=== PATIENT | male | born 1950 | race Caucasian/White ===

== ENCOUNTER 2017-08-01 16:05 | Emergency (ER) | payer MEDICARE ==
[2017-08-01 16:37] VITALS: BP 149/79; PULSE 64; RESP 16; TEMP 97.9
--- NOTE | 2017-08-01 17:17 | ED ---
General Adult HPI - General Chief complaint: Extremity Injury, Lower Stated complaint: Knee Pain Time Seen by Provider: 08/01/17 16:52 Source: patient Mode of arrival: wheelchair Limitations: no limitations - History of Present Illness Initial comments: 67-year-old male presents to the emergency department for a chief complaint of right knee pain. Patient states his pain has been chronic but he was walking today when he turned and his knee gave out. Patient denies falling or any other trauma to the knee. Patient states since that time the pain has been worse and he has had difficulty bearing weight on it. Patient just saw Dr. Tidwell yesterday and had x-rays done which showed no fracture or dislocation. Dr. Serna diagnosed him with a meniscal tear, gave him a cortisone injection, and wrote him a prescription to start therapy in 3 days. Patient states he has not been taking any anti-inflammatories or pain medications for his knee. He was wearing a brace today but finds it uncomfortable and doesn't think it helped much. Patient denies any pain in the ankle or hip. Patient has intact capillary refill in the right lower extremity. Patient has a 2+ pedal pulse. He has full sensation in the lower leg. - Related Data Allergies Allergy/AdvReac Type Severity Reaction Status Date / Time No Known Allergies Allergy Verified 08/01/17 16:36 Review of Systems ROS Statement: Those systems with pertinent positive or pertinent negative responses have been documented in the HPI. ROS Other: All systems not noted in ROS Statement are negative. Past Medical History Past Medical History: Hyperlipidemia, Thyroid Disorder History of Any Multi-Drug Resistant Organisms: None Reported Past Surgical History: Hernia Repair, Prostate Surgery Past Psychological History: No Psychological Hx Reported Smoking Status: Never smoker Past Alcohol Use History: None Reported Past Drug Use History: None Reported General Exam Limitations: no limitations Head exam: Present: atraumatic, normocephalic, normal inspection Respiratory exam: Present: normal lung sounds bilaterally. Absent: respiratory distress, wheezes, rales, rhonchi, stridor Cardiovascular Exam: Present: regular rate, normal rhythm, normal heart sounds. Absent: systolic murmur, diastolic murmur, rubs, gallop, clicks GI/Abdominal exam: Present: soft, normal bowel sounds. Absent: distended, tenderness, guarding, rebound, rigid Extremities exam: Present: tenderness (Slight tenderness to the medial aspect of the right knee), normal capillary refill. Absent: normal inspection, full ROM (Pain with extension and valgus deviation of the right knee.), pedal edema, joint swelling, calf tenderness Course Vital Signs 08/01/17 16:33 Temperature 97.9 F Pulse Rate 64 Respiratory 16 Rate Blood Pressure 149/79 O2 Sat by Pulse 97 Oximetry Medical Decision Making - Medical Decision Making 67-year-old male patient presents to the emergency department for chief complaint of right knee pain. Patient saw Dr. Serna for the knee pain yesterday. However today he was walking and turned and his knee gave out. It has been hurting since that time. Patient denies falling or any trauma to the knee so x-rays were not repeated. Patient has tenderness on the right medial aspect of the knee which is consistent with Dr. Serna's diagnosis of a meniscal tear. He also has pain with valgus deviation of the right knee. Patient will be started on ibuprofen 600mg 3 times a day with food as he has not been taking any anti-inflammatories. He is also told to rest ice and elevate the knee. We will wrap it in the emergency department. He will follow-up with Dr. Serna in one to 2 days. Disposition Clinical Impression: Right knee pain Disposition: HOME SELF-CARE Condition: Good Additional Instructions: Please follow up with Dr. Serna in one to 2 days. If pain or symptoms worsen please return to the emergency department. In the meantime, please take ibuprofen 600 mg every 8 hours. Also rest, ice, and elevate your knee. If Regino wrap is comfortable, keep your knee compressed with the wrap. Referrals: Nawaf Jones MD [Primary Care Provider] - 1-2 days Melchor Serna MD [STAFF PHYSICIAN] - 1-2 days Time of Disposition: 17:17
[2017-08-01] MEDS ORDERED: IBUPROFEN 600 MG TAB PO STA (17:27)
== END 2017-08-01 17:51 | disposition home or self-care (01) ==
LOC: EC 16:05
DX: M25.561 Pain in right knee (principal)
CPT/HCPCS: 99283

== ENCOUNTER 2017-09-30 12:39 | Emergency (ER) | payer MEDICARE ==
[2017-09-30 12:53] VITALS: BP 156/84; PULSE 50; RESP 20; TEMP 98.9
[2017-09-30] MEDS ORDERED: SODIUM CHLORIDE 0.9% 1,000 ML IV STA (13:16)
[2017-09-30 13:38] LABS: Basophils % (A) 0 %; Eosinophils # (A) 0.1 k/uL (0-0.7); Eosinophils % (A) 1 %; HCT 45.6 % (39.0-53.0); HGB 15.3 gm/dL (13.0-17.5); Lymphocytes # (A) 0.9 k/uL (1.0-4.8); Lymphocytes % (A) 8 %; MCH 29.1 pg (25.0-35.0); MCHC 33.5 g/dL (31.0-37.0); MCV 86.8 fL (80.0-100.0); Mean Platelet Volume 7.2; Monocytes # (A) 0.4 k/uL (0-1.0); Monocytes % (A) 4 %; Neutrophils # (A) 9.3 k/uL (1.3-7.7); Neutrophils % (A) 86 %; Platelet Count 187 k/uL (150-450); RBC 5.25 m/uL (4.30-5.90); RDW 13.8 % (11.5-15.5); WBC 10.8 k/uL (3.8-10.6)
--- NOTE | 2017-09-30 13:43 | ED ---
General Adult HPI - General Chief complaint: Abdominal Pain Stated complaint: Flank pain Time Seen by Provider: 09/30/17 13:01 Source: patient, RN notes reviewed Mode of arrival: ambulatory Limitations: no limitations - History of Present Illness Initial comments: 67-year-old male presents to the emergency determine for chief complaint of flank pain 2 weeks. Patient states it has been on and off for the past 2 weeks but worsened last night. Patient states he has taken some Motrin for pain which helped a couple hours ago. Patient states the pain is radiating from his left lower back to his groin and left testicle. Patient has a history of kidney stones over 20 years ago. Patient last urinated 2 hours ago. His last bowel movement was yesterday. Patient has a history of prostate surgery. Patient is urinating normally. Patient was supposed to be on a flight today but missed it to be seen in the emergency department. No fevers/chills at home. Patient has no other complaints at this time including shortness of breath, chest pain, abdominal pain, nausea or vomiting, headache, or visual changes. - Related Data Home Medications Medication Instructions Recorded Confirmed Atorvastatin [Lipitor] 20 mg PO HS 09/30/17 09/30/17 Levothyroxine Sodium [Synthroid] 88 mcg PO DAILY 09/30/17 09/30/17 Previous Rx's Medication Instructions Recorded HYDROcodone/APAP 5-325MG [[place] 1 tab PO Q6HR PRN #10 tab 09/30/17 5-325] Ibuprofen [Motrin] 600 mg PO Q6HR PRN #20 tab 09/30/17 Tamsulosin [Flomax] 0.4 mg PO DAILY #20 cap 09/30/17 Allergies Allergy/AdvReac Type Severity Reaction Status Date / Time No Known Allergies Allergy Verified 09/30/17 13:04 Review of Systems ROS Statement: Those systems with pertinent positive or pertinent negative responses have been documented in the HPI. ROS Other: All systems not noted in ROS Statement are negative. Past Medical History Past Medical History: Hyperlipidemia, Prostate Disorder, Thyroid Disorder Additional Past Medical History / Comment(s): kidney stones History of Any Multi-Drug Resistant Organisms: None Reported Past Surgical History: Hernia Repair, Prostate Surgery Past Psychological History: No Psychological Hx Reported Smoking Status: Never smoker Past Alcohol Use History: None Reported Past Drug Use History: None Reported General Exam Limitations: no limitations General appearance: alert, in no apparent distress Head exam: Present: atraumatic, normocephalic, normal inspection Eye exam: Present: normal appearance, PERRL, EOMI. Absent: scleral icterus, conjunctival injection ENT exam: Present: normal exam, mucous membranes moist, normal external ear exam Neck exam: Present: normal inspection, full ROM. Absent: tenderness, meningismus, lymphadenopathy Respiratory exam: Present: normal lung sounds bilaterally. Absent: respiratory distress, wheezes, rales, rhonchi, stridor Cardiovascular Exam: Present: regular rate, normal rhythm, normal heart sounds. Absent: systolic murmur, diastolic murmur, rubs, gallop, clicks GI/Abdominal exam: Present: soft, tenderness (Mild left lower quadrant tenderness.), normal bowel sounds, other (Negative Rovsing, obturator sign.). Absent: distended, guarding, rebound, rigid Back exam: Present: full ROM. Absent: tenderness, CVA tenderness (R), CVA tenderness (L), paraspinal tenderness, vertebral tenderness Course Vital Signs 09/30/17 12:50 Temperature 98.9 F Pulse Rate 50 L Respiratory 20 Rate Blood Pressure 156/84 O2 Sat by Pulse 100 Oximetry Medical Decision Making - Medical Decision Making 67-year-old male presents to the emergency department for a chief complaint of flank pain for the past 2 weeks worsened in the past 2 days. Patient has had aspirin with no relief. Patient states the pain radiates from his back to his testicle. He had a kidney stone about 20 years ago. Patient has had prostate surgery. He is urinating normally and not having any difficulty. Urinalysis shows moderate blood. CBC CMP and amylase lipase unremarkable. X-ray KUB shows no acute abnormalities. CT noncontrast shows a 6 mm calculus in the distal left ureter causing moderate left-sided hydronephrosis. Patient was given morphine and Toradol in the emergency department which helped with his pain. He is not driving home. Patient was Motrin for pain relief and [place]ie if he experiences breakthrough pain. He will take Flomax. He will follow up with urologist. He will return to the emergency department if he has any worsening symptoms. - Lab Data Result diagrams: 09/30/17 13:25 09/30/17 13:25 Lab Results 09/30/17 09/30/17 09/30/17 Range/Units 13:25 13:25 13:25 WBC 10.8 H (3.8-10.6) k/uL RBC 5.25 (4.30-5.90) m/uL Hgb 15.3 (13.0-17.5) gm/dL Hct 45.6 (39.0-53.0) % MCV 86.8 (80.0-100.0) fL MCH 29.1 (25.0-35.0) pg MCHC 33.5 (31.0-37.0) g/dL RDW 13.8 (11.5-15.5) % Plt Count 187 (150-450) k/uL Neutrophils % 86 % Lymphocytes % 8 % Monocytes % 4 % Eosinophils % 1 % Basophils % 0 % Neutrophils # 9.3 H (1.3-7.7) k/uL Lymphocytes # 0.9 L (1.0-4.8) k/uL Monocytes # 0.4 (0-1.0) k/uL Eosinophils # 0.1 (0-0.7) k/uL Basophils # 0.0 (0-0.2) k/uL Sodium 142 (137-145) mmol/L Potassium 4.3 (3.5-5.1) mmol/L Chloride 107 (98-107) mmol/L Carbon Dioxide 20 L (22-30) mmol/L Anion Gap 15 mmol/L BUN 18 (9-20) mg/dL Creatinine 1.10 (0.66-1.25) mg/dL Est GFR (CKD-EPI)AfAm 79 (>60 ml/min/1.73 sqM) Est GFR (CKD-EPI)NonAf 68 (>60 ml/min/1.73 sqM) Glucose 95 (74-99) mg/dL Plasma Lactic Acid [place] 0.9 (0.7-2.0) mmol/L Calcium 10.1 (8.4-10.2) mg/dL Total Bilirubin 0.5 (0.2-1.3) mg/dL AST 30 (17-59) U/L ALT 38 (21-72) U/L Alkaline Phosphatase 73 (38-126) U/L Total Protein 6.6 (6.3-8.2) g/dL Albumin 4.2 (3.5-5.0) g/dL Amylase 146 H (30-110) U/L Lipase 80 (23-300) U/L Urine Color Urine Appearance (Clear) Urine pH (5.0-8.0) Ur Specific [place] (1.001-1.035) Urine Protein (Negative) Urine Glucose (UA) (Negative) Urine Ketones (Negative) Urine Blood (Negative) Urine Nitrite (Negative) Urine Bilirubin (Negative) Urine Urobilinogen (<2.0) mg/dL Ur Leukocyte Esterase (Negative) Urine RBC (0-5) /hpf Urine WBC (0-5) /hpf Ur Squamous Epith Cells (0-4) /hpf Urine Bacteria (None) /hpf Urine Mucus (None) /hpf 09/30/17 Range/Units 13:32 WBC (3.8-10.6) k/uL RBC (4.30-5.90) m/uL Hgb (13.0-17.5) gm/dL Hct (39.0-53.0) % MCV (80.0-100.0) fL MCH (25.0-35.0) pg MCHC (31.0-37.0) g/dL RDW (11.5-15.5) % Plt Count (150-450) k/uL Neutrophils % % Lymphocytes % % Monocytes % % Eosinophils % % Basophils % % Neutrophils # (1.3-7.7) k/uL Lymphocytes # (1.0-4.8) k/uL Monocytes # (0-1.0) k/uL Eosinophils # (0-0.7) k/uL Basophils # (0-0.2) k/uL Sodium (137-145) mmol/L Potassium (3.5-5.1) mmol/L Chloride (98-107) mmol/L Carbon Dioxide (22-30) mmol/L Anion Gap mmol/L BUN (9-20) mg/dL Creatinine (0.66-1.25) mg/dL Est GFR (CKD-EPI)AfAm (>60 ml/min/1.73 sqM) Est GFR (CKD-EPI)NonAf (>60 ml/min/1.73 sqM) Glucose (74-99) mg/dL Plasma Lactic Acid [place] (0.7-2.0) mmol/L Calcium (8.4-10.2) mg/dL Total Bilirubin (0.2-1.3) mg/dL AST (17-59) U/L ALT (21-72) U/L Alkaline Phosphatase (38-126) U/L Total Protein (6.3-8.2) g/dL Albumin (3.5-5.0) g/dL Amylase (30-110) U/L Lipase (23-300) U/L Urine Color Yellow Urine Appearance Cloudy (Clear) Urine pH 5.5 (5.0-8.0) Ur Specific [place] 1.023 (1.001-1.035) Urine Protein Trace H (Negative) Urine Glucose (UA) Negative (Negative) Urine Ketones 1+ H (Negative) Urine Blood Moderate H (Negative) Urine Nitrite Negative (Negative) Urine Bilirubin Negative (Negative) Urine Urobilinogen <2.0 (<2.0) mg/dL Ur Leukocyte Esterase Negative (Negative) Urine RBC 34 H (0-5) /hpf Urine WBC 2 (0-5) /hpf Ur Squamous Epith Cells <1 (0-4) /hpf Urine Bacteria Rare H (None) /hpf Urine Mucus Few H (None) /hpf Disposition Clinical Impression: Kidney stone on left side Disposition: HOME SELF-CARE Condition: Good Instructions: Kidney Stones (ED) Additional Instructions: Please take Motrin for pain relief. If pain is still severe take Hoxie. Follow -up with urologist in one to 2 days. Return to the emergency department if you have any worsening symptoms. Prescriptions: HYDROcodone/APAP 5-325MG [[place] 5-325] 1 tab PO Q6HR PRN #10 tab PRN Reason: Pain Ibuprofen [Motrin] 600 mg PO Q6HR PRN #20 tab PRN Reason: Pain Tamsulosin [Flomax] 0.4 mg PO DAILY #20 cap Is patient prescribed a controlled substance at d/c from ED?: Yes Referrals: Nawaf Jones MD [Primary Care Provider] - 1-2 days Mirza Vazquez MD [STAFF PHYSICIAN] - 1-2 days Time of Disposition: 16:05
[2017-09-30 13:51] LABS: Albumin 4.2 g/dL (3.5-5.0); Calcium 10.1 mg/dL (8.4-10.2); Potassium 4.3 mmol/L (3.5-5.1); Total Bilirubin 0.5 mg/dL (0.2-1.3); Total Protein 6.6 g/dL (6.3-8.2)
[2017-09-30 13:57] LABS: Appearance,Urine Cloudy (Clear); Bacteria,Urine Rare /hpf; Bilirubin,Urine Negative (Negative); Blood,Urine Moderate (Negative); Color,Urine Yellow; Glucose,Urine (UA) Negative (Negative); Ketones,Urine 1+ (Negative); Leukocyte Esterase,Urine Negative (Negative); Mucus,Urine Few /hpf; Nitrite,Urine Negative (Negative); PH, Urine 5.5 (5.0-8.0); Protein,Urine Trace (Negative); RBC,Urine 34 /hpf (0-5); Specific Gravity,Urine 1.023 (1.001-1.035); Squamous Epithelial Cell,Urine <1 /hpf (0-4); Urobilinogen,Urine <2.0 mg/dL (<2.0); WBC,Urine 2 /hpf (0-5)
--- NOTE | 2017-09-30 14:31 | XR ---
EXAMINATION TYPE: XR KUB DATE OF EXAM: 09/30/2017 CLINICAL DATA: 67-year-old male complaining of left flank pain, history of kidney stones, PHH COMPARISON: None FINDINGS: Lung bases are clear. No evidence for free intraperitoneal air. No dilated small bowel or air-fluid levels. Scattered air and stool seen throughout the colon extendi ng distally into the rectum. Mild stool burden. No suspicious calcifications identified. Degenerative dextroconvex curvature of the lumbar spine. IMPRESSION: 1. No suspicious calcifications are radiographically apparent. 2. No evidence of bowel obstruction or free intraperitoneal air.
[2017-09-30] MEDS ORDERED: MORPHINE SULFATE 4 MG/ML SYRINGE IVP STA ×2 (14:53→15:57)
[2017-09-30] MEDS ORDERED: KETOROLAC 30 MG/ML 1 ML VIAL IVP STA (14:53)
[2017-09-30] MEDS ORDERED: ONDANSETRON 4 MG/2 ML VIAL IVP STA (14:54)
--- NOTE | 2017-09-30 15:32 | CT ---
EXAMINATION TYPE: CT abdomen pelvis wo con DATE OF EXAM: 09/30/2017 HISTORY: Left sided abdominal pain. CT DLP: 816 mGycm. Automated Exposure Control for Dose Reduction was Utilized. TECHNIQUE: CT scan of the abdomen and pelvis is performed without oral or IV contrast. COMPARISON: NONE FINDINGS: Within the limitations of a non-contrast study, the following observations are made. LUNG BASES: There is bibasilar linear scarring and/or atelectasis. LIVER/GB: No significant abnormality is appreciated. PANCREAS: No significant abnormality is seen. SPLEEN: No significant abnormality is seen. ADRENALS: No significant abnormality is seen. KIDNEYS: There is central hyperdensity in the right kidney raising concern for underlying medullary n ephrocalcinosis. Roughly 3-8 formed calculi are felt present. There is simple appearing 1.6 cm cyst a nteriorly mid pole level right kidney axial image 57. No hydronephrosis or obstructing right ureter c alculi are seen. Central density in the left kidney is also present filling calyces. Suspect underlying nephrocalcinos is. There is moderate left-sided hydronephrosis and mild to moderate left-sided perinephric fat stran ding secondary to obstructing 6 mm calculus in the distal left ureter right before UVJ seen best seen coronal image 50. No intraluminal calculus is seen in poorly distended bladder. Bladder wall is mildly thickened at 9 m m. Correlate clinically to exclude cystitis. BOWEL: There are scattered diverticula throughout the colon. There is no convincing CT evidence for a cute diverticulitis. Mild wall thickening in the transverse colon is present. This is presumed produc t of poor distention. Other etiologies are not excluded. Correlate clinically. There is no suspicious small or large bowel dilatation. There is single prominent small bowel loop with air-fluid level in the upper pelvis just left of midline axial image 102 measuring 2.8 cm in diameter. GENITAL ORGANS: Prostate gland is not well-visualized and may be surgically absent or small in size. No pelvic clips are identified. LYMPH NODES: No greater than 1cm abdominal or pelvic lymph nodes are appreciated. OSSEOUS STRUCTURES: Posterior spurs effacing anterior thecal sac L1-L2 level. There is moderate to se mary anterior spurring L4-L5 level. There is moderate disc space narrowing L4-L5 level. There is mode rate joint space loss in both hips. OTHER: There is small to moderate-sized left paraumbilical hernia containing fat and small mesenteric vessel vascular axial image 70. There is small fat-containing right inguinal hernia. IMPRESSION: There is 6 mm calculus distal left ureter causing moderate left-sided hydronephrosis. Pos sible underlying cystitis, correlate clinically.
[2017-09-30] MEDS ORDERED: MORPHINE SULFATE 4 MG/ML SYRINGE IVP PRN (15:56)
[2017-09-30] MEDS ORDERED: KETOROLAC 30 MG/ML 1 ML VIAL IM STA (16:36)
== END 2017-09-30 16:52 | disposition home or self-care (01) ==
LOC: EC 12:39
DX: N13.2 Hydronephrosis with renal and ureteral calculous obstruction (principal); E78.5 Hyperlipidemia, unspecified; Z79.899 Other long term (current) drug therapy; Z98.890 Other specified postprocedural states
CPT/HCPCS: 36415; 80053; 82150; 83605; 83690; 85025; 81001; 74018; 74176; 99284; 96374; 96375 ×2; 96361 ×2; 96372; J2270; J2405; J1885

== ENCOUNTER 2017-10-02 02:11 | Emergency (ER) | payer MEDICARE ==
[2017-10-02 02:16] VITALS: BP 139/97; PULSE 64; RESP 16; TEMP 99.2
[2017-10-02] MEDS ORDERED: SODIUM CHLORIDE 0.9% 1,000 ML IV ONE (02:27)
[2017-10-02] MEDS ORDERED: MORPHINE SULFATE 4 MG/ML SYRINGE IVP STA (02:27)
[2017-10-02] MEDS ORDERED: KETOROLAC 30 MG/ML 1 ML VIAL IVP STA (02:27)
--- NOTE | 2017-10-02 02:30 | ED ---
Abdominal Pain HPI - General Chief Complaint: Abdominal Pain Stated Complaint: kidney stone Time Seen by Provider: 10/02/17 02:19 Source: patient Mode of arrival: wheelchair Limitations: no limitations - History of Present Illness Initial Comments: 67-year-old male patient presents to the emergency department today for evaluation of left-sided flank pain that radiates around to his abdomen and groin. Patient was seen and evaluated here 2 days ago was diagnosed with a 6 mm stone to the left distal ureter that was causing moderate left-sided hydronephrosis. Patient states he has been taking his medication as prescribed. States that he has had continuous pain however started getting more severe approximately one hour ago. Patient states he has been urinating without difficulty. Denies any nausea or vomiting. Denies any difficulty with bowel movements. Patient denies any fevers or chills. He does have an appointment with urologist later today. Patient denies any recent rash, shortness breath, chest pain, numbness, tingling, dizziness, weakness, headache , visual changes, or any other complaints. - Related Data Home Medications Medication Instructions Recorded Confirmed Atorvastatin [Lipitor] 20 mg PO HS 09/30/17 09/30/17 Levothyroxine Sodium [Synthroid] 88 mcg PO DAILY 09/30/17 09/30/17 Previous Rx's Medication Instructions Recorded HYDROcodone/APAP 5-325MG [[place] 1 tab PO Q6HR PRN #10 tab 09/30/17 5-325] Ibuprofen [Motrin] 600 mg PO Q6HR PRN #20 tab 09/30/17 Tamsulosin [Flomax] 0.4 mg PO DAILY #20 cap 09/30/17 Ciprofloxacin HCl [Cipro] 500 mg PO Q12HR #14 tablet 10/02/17 Allergies Allergy/AdvReac Type Severity Reaction Status Date / Time No Known Allergies Allergy Verified 10/02/17 02:16 Review of Systems ROS Statement: Those systems with pertinent positive or pertinent negative responses have been documented in the HPI. ROS Other: All systems not noted in ROS Statement are negative. Past Medical History Past Medical History: Hyperlipidemia, Prostate Disorder, Thyroid Disorder Additional Past Medical History / Comment(s): kidney stones History of Any Multi-Drug Resistant Organisms: None Reported Past Surgical History: Hernia Repair, Prostate Surgery Past Psychological History: No Psychological Hx Reported Smoking Status: Never smoker Past Alcohol Use History: None Reported Past Drug Use History: None Reported General Exam Limitations: no limitations General appearance: alert, in no apparent distress, other (This is a well- developed, well-nourished adult male patient in no acute distress. Vital signs upon presentation are temperature 99.2F, pulse 64, respirations 16, blood pressure 139/97, pulse ox 98% on room air.) Eye exam: Present: normal appearance, PERRL, EOMI. Absent: scleral icterus, conjunctival injection, periorbital swelling ENT exam: Present: normal exam, normal oropharynx, mucous membranes moist Respiratory exam: Present: normal lung sounds bilaterally. Absent: respiratory distress, wheezes, rales, rhonchi, stridor Cardiovascular Exam: Present: regular rate, normal rhythm, normal heart sounds. Absent: systolic murmur, diastolic murmur, rubs, gallop, clicks GI/Abdominal exam: Present: soft, tenderness (Left lower quadrant tenderness), normal bowel sounds. Absent: distended, guarding, rebound, rigid Back exam: Present: normal inspection, CVA tenderness (L). Absent: CVA tenderness (R) Neurological exam: Present: alert, oriented X3, CN II-XII intact Psychiatric exam: Present: normal affect, normal mood Skin exam: Present: warm, dry, intact, normal color. Absent: rash Course Vital Signs 10/02/17 02:13 Temperature 99.2 F Pulse Rate 64 Respiratory 16 Rate Blood Pressure 139/97 O2 Sat by Pulse 98 Oximetry Medical Decision Making - Medical Decision Making 67-year-old male patient presented to the emergency department today for evaluation of left flank pain. Pain had resolved by the time patient arrived. Patient was diagnosed with a kidney stone a couple of days ago. Did check labs to review kidney function which did show mild elevation in the creatinine at 1.40. Urinalysis was repeated as well as should show large amount of blood with 6 red cells and 6 white cells. Patient did have rare bacteria as well. We will treat this with Cipro. He does have an appointment with urologist today at 2:00. He is urged to keep this appointment. He is instructed to continue using home pain medications and Flomax. He is instructed to increase fluids. Return parameters discussed in detail. He verbalizes understanding and agree with this plan - Lab Data Result diagrams: 10/02/17 02:35 10/02/17 02:35 Lab Results 10/02/17 10/02/17 10/02/17 Range/Units 02:35 02:35 02:35 WBC 7.9 (3.8-10.6) k/uL RBC 4.70 (4.30-5.90) m/uL Hgb 13.6 (13.0-17.5) gm/dL Hct 40.8 (39.0-53.0) % MCV 86.8 (80.0-100.0) fL MCH 29.0 (25.0-35.0) pg MCHC 33.4 (31.0-37.0) g/dL RDW 14.0 (11.5-15.5) % Plt Count 163 (150-450) k/uL Neutrophils % 76 % Lymphocytes % 16 % Monocytes % 6 % Eosinophils % 1 % Basophils % 0 % Neutrophils # 6.0 (1.3-7.7) k/uL Lymphocytes # 1.2 (1.0-4.8) k/uL Monocytes # 0.5 (0-1.0) k/uL Eosinophils # 0.1 (0-0.7) k/uL Basophils # 0.0 (0-0.2) k/uL Sodium 140 (137-145) mmol/L Potassium 4.4 (3.5-5.1) mmol/L Chloride 110 H (98-107) mmol/L Carbon Dioxide 17 L (22-30) mmol/L Anion Gap 13 mmol/L BUN 18 (9-20) mg/dL Creatinine 1.40 H (0.66-1.25) mg/dL Est GFR (CKD-EPI)AfAm 59 (>60 ml/min/1.73 sqM) Est GFR (CKD-EPI)NonAf 51 (>60 ml/min/1.73 sqM) Glucose 98 (74-99) mg/dL Calcium 10.0 (8.4-10.2) mg/dL Total Bilirubin 0.6 (0.2-1.3) mg/dL AST 27 (17-59) U/L ALT 41 (21-72) U/L Alkaline Phosphatase 66 (38-126) U/L Total Protein 6.1 L (6.3-8.2) g/dL Albumin 3.9 (3.5-5.0) g/dL Urine Color Light Yellow Urine Appearance Clear (Clear) Urine pH 5.0 (5.0-8.0) Ur Specific [place] 1.010 (1.001-1.035) Urine Protein Negative (Negative) Urine Glucose (UA) Negative (Negative) Urine Ketones Trace H (Negative) Urine Blood Large H (Negative) Urine Nitrite Negative (Negative) Urine Bilirubin Negative (Negative) Urine Urobilinogen <2.0 (<2.0) mg/dL Ur Leukocyte Esterase Small H (Negative) Urine RBC 6 H (0-5) /hpf Urine WBC 6 H (0-5) /hpf Urine WBC Clumps Rare H (None) /hpf Ur Squamous Epith Cells <1 (0-4) /hpf Urine Bacteria Rare H (None) /hpf Urine Mucus Rare H (None) /hpf Disposition Clinical Impression: Kidney stone on left side Disposition: HOME SELF-CARE Condition: Good Instructions: Kidney Stones (ED) Additional Instructions: Increase fluids. Take medications as directed. Follow-up with urology as you have planned today. Return here immediately for any new, worsening, or concerning symptoms. Prescriptions: Ciprofloxacin HCl [Cipro] 500 mg PO Q12HR #14 tablet Is patient prescribed a controlled substance at d/c from ED?: No Referrals: Nawaf Jones MD [Primary Care Provider] - 1-2 days Time of Disposition: 03:17
[2017-10-02 02:46] LABS: Basophils % (A) 0 %; Eosinophils # (A) 0.1 k/uL (0-0.7); Eosinophils % (A) 1 %; HCT 40.8 % (39.0-53.0); HGB 13.6 gm/dL (13.0-17.5); Lymphocytes # (A) 1.2 k/uL (1.0-4.8); Lymphocytes % (A) 16 %; MCHC 33.4 g/dL (31.0-37.0); MCV 86.8 fL (80.0-100.0); Mean Platelet Volume 7.7; Monocytes # (A) 0.5 k/uL (0-1.0); Monocytes % (A) 6 %; Neutrophils % (A) 76 %; Platelet Count 163 k/uL (150-450); WBC 7.9 k/uL (3.8-10.6)
[2017-10-02 02:55] LABS: Appearance,Urine Clear (Clear); Bacteria,Urine Rare /hpf; Bilirubin,Urine Negative (Negative); Blood,Urine Large (Negative); Color,Urine Light Yellow; Glucose,Urine (UA) Negative (Negative); Ketones,Urine Trace (Negative); Leukocyte Esterase,Urine Small (Negative); Mucus,Urine Rare /hpf; Nitrite,Urine Negative (Negative); Protein,Urine Negative (Negative); RBC,Urine 6 /hpf (0-5); Squamous Epithelial Cell,Urine <1 /hpf (0-4); Urobilinogen,Urine <2.0 mg/dL (<2.0); WBC,Urine 6 /hpf (0-5)
[2017-10-02 02:56] LABS: Albumin 3.9 g/dL (3.5-5.0); Potassium 4.4 mmol/L (3.5-5.1); Total Bilirubin 0.6 mg/dL (0.2-1.3); Total Protein 6.1 g/dL (6.3-8.2)
[2017-10-02] MEDS ORDERED: CIPROFLOXACIN HCL 500 MG TAB PO STA (03:16)
== END 2017-10-02 03:32 | disposition home or self-care (01) ==
LOC: EC 02:11
DX: N13.2 Hydronephrosis with renal and ureteral calculous obstruction (principal); E78.5 Hyperlipidemia, unspecified; E07.9 Disorder of thyroid, unspecified; Z79.899 Other long term (current) drug therapy; Z53.29 Procedure and treatment not carried out because of patient's decision for other reasons
CPT/HCPCS: 36415; 80053; 85025; 81001; 99284; 96374; 96361; J1885

== ENCOUNTER → 2019-06-10 | Outpatient (CLI) | payer MEDICARE ==
[2019-06-10 15:32] LABS: HGB 14.3 gm/dL (13.0-17.5); MCH 28.7 pg (25.0-35.0); MCHC 31.7 g/dL (31.0-37.0); MCV 90.4 fL (80.0-100.0); Mean Platelet Volume 8.2; Platelet Count 176 k/uL (150-450); RBC 4.97 m/uL (4.30-5.90); RDW 13.1 % (11.5-15.5); WBC 5.8 k/uL (3.8-10.6)
== END | disposition home or self-care (01) ==
LOC: LABPAT 15:13
PROVIDERS: ATTEND Surgery
DX: Z01.812 Encounter for preprocedural laboratory examination (principal)
CPT/HCPCS: 36415; 85027

== ENCOUNTER 2019-06-15 09:32 | Day surgery (SDC) | payer MEDICARE ==
[2019-06-10 13:32] VITALS: BMI 25.5
[~2019-06-15 09:32] MED LIST: DEXAMETHASONE SOD PHOSPHATE 10 MG/ML 1 ML VIAL IV ONE; HEPARIN SODIUM,PORCINE 5,000 UNIT/ML 1 ML VIAL SQ ONE; HYDROmorphone 0.5 MG/0.5 ML SYRINGE IVP PRN; LIDOCAINE 1% 20 ML VIAL (10MG/ML) FOR IV START INTRADERMA PRN; ONDANSETRON 4 MG/2 ML VIAL IVP ONE
[2019-06-15] MEDS: LACTATED RINGERS 1,000 ML IV SCH (10:34)
--- NOTE | 2019-06-15 12:05 | P.GSHP ---
History of Present Illness H&P Date: 06/15/19 Chief Complaint: Right Inguinal and umbilical hernia This a 69-year-old male who presents today for laparoscopic robotic-assisted repair of right inguinal and umbilical hernia. Patient developed a tender mass is right groin. He has a 3 cm umbilical hernia. Past Medical History Past Medical History: Hyperlipidemia, Prostate Disorder, Thyroid Disorder Additional Past Medical History / Comment(s): kidney stones History of Any Multi-Drug Resistant Organisms: None Reported Past Surgical History: Hernia Repair, Prostate Surgery Additional Past Surgical History / Comment(s): left hernia, umbilical hernia Past Anesthesia/Blood Transfusion Reactions: No Reported Reaction Smoking Status: Never smoker - Past Family History Mother Family Medical History: No Reported History Father Family Medical History: Cancer Additional Family Medical History / Comment(s): prostate Brother(s) Family Medical History: Cancer Additional Family Medical History / Comment(s): prostate Medications and Allergies Home Medications Medication Instructions Recorded Confirmed Type Atorvastatin [Lipitor] 20 mg PO HS 09/30/17 06/10/19 History Levothyroxine Sodium [Synthroid] 88 mcg PO DAILY 09/30/17 06/10/19 History Allergies Allergy/AdvReac Type Severity Reaction Status Date / Time adhesive tape AdvReac "peels Verified 06/10/19 13:33 skin" Surgical - Exam Vital Signs Pulse Resp BP Pulse Ox 60 16 148/84 98 06/15/19 10:15 06/15/19 10:15 06/15/19 10:15 06/15/19 10:15 - General well developed, well nourished, no distress - Eyes PERRL - ENT normal pinna - Neck no masses - Respiratory normal expansion - Cardiovascular Rhythm: regular - Abdomen Abdomen: soft, non tender Hernia: inguinal (Right), umbilical (3 cm) Assessment and Plan Assessment: Right inguinal hernia, umbilical hernia, we'll perform laparoscopic robotic- assisted repair.
[2019-06-15] MEDS ORDERED: KETOROLAC 30 MG/ML 1 ML VIAL ONE (12:26)
[2019-06-15] MEDS ORDERED: GLYCOPYRROLATE 0.2 MG/ML 2 ML VIAL ONE (12:26)
[2019-06-15] MEDS ORDERED: fentaNYL (PF) 50 MCG/ML 2 ML AMP ONE (12:26)
[2019-06-15] MEDS ORDERED: PROPOFOL 10 MG/ML 20 ML VIAL IV ONE (12:26)
[2019-06-15] MEDS ORDERED: MIDAZOLAM 2 MG/2 ML VIAL ONE (12:26)
[2019-06-15] MEDS ORDERED: NEOSTIGMINE 1 MG/ML 10 ML VIAL ONE (12:26)
[2019-06-15] MEDS ORDERED: ROCURONIUM BROMIDE 10 MG/ML 10 ML VIAL IV ONE (12:26)
[2019-06-15] MEDS ORDERED: BUPIVACAINE (PF) 0.25% 30 ML VIAL SQ ONE (12:47)
--- NOTE | 2019-06-15 13:42 | P.OP ---
Date of Procedure: 06/15/19 Preoperative Diagnosis: Right inguinal hernia Incarcerated umbilical hernia Postoperative Diagnosis: Right inguinal hernia Incarcerated umbilical hernia Procedure(s) Performed: Laparoscopic robotic spare of radial hernia Laparoscopic repair of incarcerated umbilical hernia Partial omentectomy Anesthesia: MARCO Surgeon: Biju Kilpatrick Estimated Blood Loss (ml): 5 Pathology: other (Omentum) Condition: stable Disposition: PACU Description of Procedure: The patient's placed on the operating table in the supine position. The patient received general anesthesia. The patient's abdomen was prepped and draped in usual sterile fashion. The skin was anesthetized 1% local Xylocaine at the incision sites. Using an 11 blade a skin incision was made at the umbilicus. The incarcerated omentum was dissected with cautery and subcu pathology. The fascia was grasped with a Francheska and then the peritoneal cavity was entered with the 5 mm trocar through the fascial defect.. . The Laparoscope was placed the peritoneal cavity. And a robotic 8 mm trocar was placed in the right lateral position and then another 8 mm robotic trochars placed in the left lateral position. The original 5 mm trocar was exchanged for a 8 mm trocar. The patient was placed in reverse Trendelenburg and then the patient was docked to the robot. Next the peritoneum over top of the hernia was incised and then using blunt and sharp dissection and electrocautery the hernia sac was dissected free from the floor of the inguinal canal. The hernia sac was completely reduced into the peritoneal cavity. And then using the Pro tree surgeon mesh the hernia was repaired. The peritoneum was then sutured with 20V lock suture. The patient was then undocked the robot. The needle was withdrawn from the peritoneal cavity. The umbilical hernia site was closed laparoscopically with 0 Ethibond suture in the Vish Monroe suture passer. The skin was closed interrupted 3-0 Monocryl suture. Dermabond dressing was applied. Patient was sent to recovery in stable condition.
[2019-06-15 13:56] VITALS: TEMP 97.6
[2019-06-15] MEDS ORDERED: HYDROcodone/APAP 5-325MG 1 EACH TAB PO ONE (14:43)
[2019-06-15 15:04] VITALS: PULSE 77
[2019-06-15 16:16] VITALS: BP 135/85; RESP 16
== END 2019-06-15 16:20 | disposition home or self-care (01) ==
LOC: OR 09:32
PROVIDERS: ATTEND Surgery
DX: K40.90 Unilateral inguinal hernia, without obstruction or gangrene, not specified as recurrent (principal); K42.0 Umbilical hernia with obstruction, without gangrene; E78.5 Hyperlipidemia, unspecified; E07.9 Disorder of thyroid, unspecified; Z87.442 Personal history of urinary calculi; Z79.890 Hormone replacement therapy; Z91.048 Other nonmedicinal substance allergy status; N42.9 Disorder of prostate, unspecified; Z79.899 Other long term (current) drug therapy
CPT/HCPCS: 49650; S2900; 88302

== ENCOUNTER 2021-03-08 13:12 | Emergency (ER) | payer MEDICARE ==
[2021-03-08 13:29] VITALS: RESP 18
--- NOTE | 2021-03-08 13:42 | ED ---
General Adult HPI - General Chief complaint: Recheck/Abnormal Lab/Rx Stated complaint: here for antibodies Time Seen by Provider: 03/08/21 13:20 Source: patient, RN notes reviewed Mode of arrival: ambulatory Limitations: no limitations - History of Present Illness Initial comments: Patient is a 70-year-old male presenting to the ED for positive COVID-19 result. Patient states he wished to see monoclonal antibodies sent here by PCP. Patient states that symptoms started Thursday the , with positive result on the . Patient reports general fatigue and weakness mild shortness of breath with activity. Patient denies any nausea, vomiting, fever, cough or congestion with slight decrease in oral intake. Patient reports no change in bowel moveme nt or urination. Patient reports no history of lung disease. Patient expresses being hospitalized back in May 2019 he "thinks it was possbily covid back then." - Related Data Home Medications Medication Instructions Recorded Confirmed Atorvastatin [Lipitor] 20 mg PO HS 09/30/17 06/10/19 Levothyroxine Sodium [Synthroid] 88 mcg PO DAILY 09/30/17 06/10/19 Previous Rx's Medication Instructions Recorded Docusate [Colace] 100 mg PO BID #20 capsule 06/15/19 HYDROcodone/APAP 5-325MG [[place] 1 tab PO Q6HR PRN #10 tab 06/15/19 5-325] Allergies Allergy/AdvReac Type Severity Reaction Status Date / Time adhesive tape AdvReac "peels Verified 06/10/19 13:33 skin" Review of Systems ROS Statement: Those systems with pertinent positive or pertinent negative responses have been documented in the HPI. ROS Other: All systems not noted in ROS Statement are negative. Past Medical History Past Medical History: Hyperlipidemia, Prostate Disorder, Thyroid Disorder Additional Past Medical History / Comment(s): kidney stones History of Any Multi-Drug Resistant Organisms: None Reported Past Surgical History: Hernia Repair, Prostate Surgery Additional Past Surgical History / Comment(s): left hernia, umbilical hernia Past Anesthesia/Blood Transfusion Reactions: No Reported Reaction Past Psychological History: No Psychological Hx Reported Past Alcohol Use History: None Reported Past Drug Use History: None Reported - Past Family History Mother Family Medical History: No Reported History Father Family Medical History: Cancer Additional Family Medical History / Comment(s): prostate Brother(s) Family Medical History: Cancer Additional Family Medical History / Comment(s): prostate General Exam Limitations: no limitations General appearance: alert, in no apparent distress Head exam: Present: atraumatic, normocephalic, normal inspection Eye exam: Present: normal appearance, PERRL, EOMI. Absent: scleral icterus, conjunctival injection, periorbital swelling ENT exam: Present: normal exam, mucous membranes moist Neck exam: Present: normal inspection. Absent: tenderness, meningismus, lymphadenopathy Respiratory exam: Present: normal lung sounds bilaterally. Absent: respiratory distress, wheezes, rales, rhonchi, stridor Cardiovascular Exam: Present: regular rate, normal rhythm, normal heart sounds. Absent: systolic murmur, diastolic murmur, rubs, gallop, clicks Neurological exam: Present: alert, oriented X3, CN II-XII intact Skin exam: Present: warm, dry, intact, normal color. Absent: rash Course Vital Signs 03/08/21 13:27 Temperature 98.7 F Pulse Rate 68 Respiratory 18 Rate Blood Pressure 131/85 O2 Sat by Pulse 97 Oximetry Medical Decision Making - Medical Decision Making Patient presents COVID-19 positive, receive monoclonal antibody treatment per infusion. Symptomatic treatment was discussed with patient. Return parameters were discussed. Disposition Clinical Impression: COVID-19 Disposition: HOME SELF-CARE Condition: Stable Instructions (If sedation given, give patient instructions): Coronavirus Disease 2019 (COVID-19) Additional Instructions: Please return to the Emergency Department if symptoms worsen or any other concerns. Is patient prescribed a controlled substance at d/c from ED?: No Referrals: Nawaf Jones MD [Primary Care Provider] - 1-2 days Time of Disposition: 14:16
[2021-03-08] MEDS ORDERED: SODIUM CHLORIDE 0.9% 50 ML IVPB ONE (14:00)
--- NOTE | 2021-03-08 14:17 | XR ---
EXAMINATION TYPE: XR chest 2V DATE OF EXAM: 03/08/2021 COMPARISON: NONE TECHNIQUE: PA and lateral views submitted. HISTORY: Shortness of breath FINDINGS: The lungs are clear and there is no pneumothorax, pleural effusion, or focal pneumonia. Heart is en larged and there is hyperinflation of the lungs. Hypertrophic change of the spine. No overt failure. IMPRESSION: 1. Correlate for COPD and cardiomegaly.
[2021-03-08] MEDS ORDERED: CASIRIVIMAB (REGN10933) (EUA) 600 MG, IMDEVIMAB (REGN10987) (EUA) 600 MG in SODIUM CHLO... IVPB ONE (14:30)
[2021-03-08 15:37] VITALS: BP 150/87; PULSE 66
[2021-03-08 15:39] VITALS: TEMP 98
== END 2021-03-08 15:53 | disposition home or self-care (01) ==
LOC: EC 13:12
DX: U07.1 COVID-19 (principal); E78.5 Hyperlipidemia, unspecified; E07.9 Disorder of thyroid, unspecified; Z87.442 Personal history of urinary calculi
CPT/HCPCS: 71046; 99284

== ENCOUNTER → 2022-02-27 | Outpatient (CLI) | payer MEDICARE ==
[2022-02-27 15:05] LABS: ALT 30 U/L (10-49); AST 29 U/L (14-35); Chol/HDL Ratio 2.47 Ratio; LDL Cholesterol,Calculated 82.5 mg/dL (0.0-131.0); VLDL Calculation 17.44 mg/dL (5.00-40.00)
== END | disposition home or self-care (01) ==
LOC: LABWHC1 09:28
PROVIDERS: ATTEND Internal Medicine Interventional Cardiology
DX: E78.2 Mixed hyperlipidemia (principal)
CPT/HCPCS: 36415; 80061; 84450; 84460

== ENCOUNTER 2024-04-19 10:09 | Emergency (ER) | payer MEDICARE ==
[2024-04-19 10:16] VITALS: RESP 18
--- NOTE | 2024-04-19 11:15 | ED ---
Back Pain HPI - General Chief Complaint: Back Pain/Injury Stated Complaint: body pain Time Seen by Provider: 04/19/24 10:18 Source: patient, RN notes reviewed Limitations: no limitations - History of Present Illness Initial Comments: This is a 74-year-old male presenting with for back pain and extremity weakness x 2 months. Patient endorses worsening weakness in his proximal extremities as well as worsening posture. States symptoms started at the beginning of February and have been progressively worsening since that time. Patient endorses bilateral upper thigh pain when seated upright and at night when supine. Denies any corresponding paresthesia or color change in extremities. Patient also mentions generalized upper chest tightness. Patient states weakness is preventing completion of usual daily activities and states he is usually very active. Patient endorses a fall in August 2023, causing him to strike his neck at that time. Patient denies fever, chills, dyspnea, abdominal pain, N/V/D, dizziness. MD Complaint: back pain, other (Extremity weakness) Onset/Timin -: month(s) Radiation: left leg, right leg Consistency: constant Associated Symptoms: difficulty walking - Related Data Home Medications Medication Instructions Recorded Confirmed Atorvastatin [Lipitor] 20 mg PO HS 09/30/17 01/08/22 Levothyroxine Sodium [Synthroid] 88 mcg PO AC-BRKFST 09/30/17 01/08/22 Potassium Gluconate [Potassium 99 - 198 mg PO DAILY PRN 01/08/22 01/08/22 Gluconate ER] Vitamin C(Unknown) 1 tab PO DAILY 01/08/22 01/08/22 Vitamin D3(Unknown) 1 tab PO DAILY 01/08/22 01/08/22 Vitamin E(Unknown) 1 cap PO DAILY 01/08/22 01/08/22 Previous Rx's Medication Instructions Recorded Aspirin 81 mg PO DAILY tab 01/09/22 Allergies Allergy/AdvReac Type Severity Reaction Status Date / Time latex Allergy Rash/Hives Verified 01/08/22 15:45 adhesive tape AdvReac "peels Verified 01/08/22 15:45 skin" Review of Systems ROS Statement: Those systems with pertinent positive or pertinent negative responses have been documented in the HPI. ROS Other: All systems not noted in ROS Statement are negative. Past Medical History Past Medical History: Hyperlipidemia, Prostate Disorder, Thyroid Disorder Additional Past Medical History / Comment(s): kidney stones, Hx of prostate cancer s/p prostectomy History of Any Multi-Drug Resistant Organisms: None Reported Past Surgical History: Hernia Repair, Prostate Surgery Additional Past Surgical History / Comment(s): left hernia, umbilical hernia Past Anesthesia/Blood Transfusion Reactions: No Reported Reaction Past Psychological History: No Psychological Hx Reported Smoking Status: Never smoker Past Alcohol Use History: Rare Past Drug Use History: None Reported - Past Family History Mother Family Medical History: No Reported History Additional Family Medical History / Comment(s): valvular heart disease Father Family Medical History: Cancer Additional Family Medical History / Comment(s): prostate Brother(s) Family Medical History: Cancer Additional Family Medical History / Comment(s): prostate General Exam Limitations: no limitations General appearance: alert, in no apparent distress Head exam: Present: atraumatic, normocephalic, normal inspection Eye exam: Present: normal appearance, PERRL, EOMI. Absent: scleral icterus, conjunctival injection, periorbital swelling ENT exam: Present: normal exam, mucous membranes moist Neck exam: Present: normal inspection, other (Positive right Spurling test). Absent: tenderness, meningismus, lymphadenopathy Respiratory exam: Present: normal lung sounds bilaterally. Absent: respiratory distress, wheezes, rales, rhonchi, stridor Cardiovascular Exam: Present: regular rate, normal rhythm, normal heart sounds. Absent: systolic murmur, diastolic murmur, rubs, gallop, clicks GI/Abdominal exam: Present: soft, normal bowel sounds. Absent: distended, tenderness, guarding, rebound, rigid Extremities exam: Present: normal inspection, tenderness, normal capillary refill, other (Proximal muscle strength of all extremities 4/5. L ROM with bilateral shoulders to shoulder level only. Distal neurovascular of all extremities intact. Bilateral radial and posterior tibialis pulse +2). Absent: pedal edema, joint swelling Back exam: Present: normal inspection, paraspinal tenderness (Positive right lumbosacral paraspinal/superior gluteus point tenderness/spasm), vertebral tenderness (L1/L2 vertebral tenderness without crepitus, step-off), other (Positive right Spurling test with reproducible pain.) Neurological exam: Present: alert, oriented X3, CN II-XII intact (LROM with bilateral neck rotation), other (Grace stroke negative) Psychiatric exam: Present: normal affect, normal mood Skin exam: Present: warm, dry, intact, normal color. Absent: rash Course Vital Signs 04/19/24 04/19/24 10:11 13:55 Temperature 98.4 F 98.1 F Pulse Rate 84 79 Respiratory 18 18 Rate Blood Pressure 131/75 129/81 O2 Sat by Pulse 99 99 Oximetry Medical Decision Making - Medical Decision Making Was pt. sent in by a medical professional or institution (, PA, DOCUMENT PREPARER [employer]CR[employer]ILMING, urgent care, hospital, or long term...) When possible be specific @ -No Did you speak to anyone other than the patient for history (EMS, parent, family, police, friend...)? What history was obtained from this source @ -No Did you review nursing and triage notes (agree or disagree)? Why? @ -I reviewed and agree with nursing and triage notes Were old charts reviewed (outside hosp., previous admission, EMS record, old EKG, old radiological studies, urgent care reports/EKG's, long term records)? Report findings @ -No old charts were reviewed Differential Diagnosis (chest pain, altered mental status, abdominal pain women, abdominal pain men, vaginal bleeding, weakness, fever, dyspnea, syncope, headache, dizziness, GI bleed, back pain, seizure, CVA, palpatations, mental health, musculoskeletal)? @ -Differential Weakness: Hypoglycemia, shock, sepsis, hyponatremia, anemia, infection, DC, ETOH, adverse medicine reaction, overdose, stroke, this is not meant to be an all-inclusive list. EKG interpreted by me (3pts min.). @ -Sinus rhythm without ST changes or T wave inversion. Ventricular rate 65 bpm, JERRY 208 ms, QRS duration 86 ms, QTc 399 ms. X-rays interpreted by me (1pt min.). @ -Chest x-ray showed no acute cardiopulmonary process. CT interpreted by me (1pt min.). @ -Cervical spine CT shows moderate multilevel DDD, especially at C5-C7 with moderate canal stenosis. Grade 1 anterolisthesis of C3/C4 and C7/T1. Mild retrolisthesis of C5/C6. Radiologist advised consideration for MRI cervical spine. Lumbar CT shows mild to moderate DDD and facet arthropathy at L1/L2 and L3/L4 with mild central canal stenosis. U/S interpreted by me (1pt. min.). @ -None done What testing was considered but not performed or refused? (CT, X-rays, U/S, labs)? Why? @ -None What meds were considered but not given or refused? Why? @ -None Did you discuss the management of the patient with other professionals (professionals i.e. , PA, DOCUMENT PRE[employer], lab, RT, psych nurse, case management social worker, amusement park ride mechanic, teacher, staff command and control officer, patient case coordinator)? Give summary @ -No Was smoking cessation discussed for >3mins.? @ -No Was critical care preformed (if so, how long)? @ -No Were there social determinants of health that impacted care today? How? (Homelessness, low income, unemployed, alcoholism, drug addiction, transportation, low edu. Level, literacy, decrease access to med. care, halfway, rehab)? @ -No Was there de-escalation of care discussed even if they declined (Discuss DNR or withdrawal of care, Hospice)? DNR status @ -No What co-morbidities impacted this encounter? (DM, HTN, Smoking, COPD, CAD, Cancer, CVA, ARF, Chemo, Hep., AIDS, mental health diagnosis, sleep apnea, morbid obesity)? @ -None Was patient admitted / discharged? Hospital course, mention meds given and route, prescriptions, significant lab abnormalities, going to OR and other pertinent info. @ -Work was generally unremarkable including troponin, UA and Cepheid test. Chest x-ray showed no acute cardiopulmonary process. Cervical spine CT shows moderate multilevel DDD, especially at C5-C7 with moderate canal stenosis. Grade 1 anterolisthesis of C3/C4 and C7/T1. Mild retrolisthesis of C5/C6. Radiologist advised consideration for MRI cervical spine. Lumbar CT shows mild to moderate DDD and facet arthropathy at L1/L2 and L3/L4 with mild central canal stenosis. Advised follow-up with scheduled appointment with Dr. Montague for further workup. Undiagnosed new problem with uncertain prognosis? @ -No Drug Therapy requiring intensive monitoring for toxicity (Heparin, Nitro, Insulin, Cardizem)? @ -No Were any procedures done? @ -No Diagnosis/symptom? @ -Cervical spine stenosis, weakness Acute, or Chronic, or Acute on Chronic? @ -Acute Uncomplicated (without systemic symptoms) or Complicated (systemic symptoms)? @ -Complicated Side effects of treatment? @ -No Exacerbation, Progression, or Severe Exacerbation? @ -No Poses a threat to life or bodily function? How? (Chest pain, USA, DC, pneumonia, PE, COPD, DKA, ARF, appy, cholecystitis, CVA, Diverticulitis, Homicidal, Suicidal, threat to staff... and all critical care pts) @ -No - Lab Data Result diagrams: 04/19/24 11:07 04/19/24 11:07 Lab Results 04/19/24 04/19/24 04/19/24 Range/Units 10:58 10:58 11:07 WBC 9.7 (3.8-10.6) k/uL RBC 4.40 (4.30-5.90) m/uL Hgb 12.3 L (13.0-17.5) gm/dL Hct 37.5 L (39.0-53.0) % MCV 85.2 (80.0-100.0) fL MCH 27.9 (25.0-35.0) pg MCHC 32.7 (31.0-37.0) g/dL RDW 13.2 (11.5-15.5) % Plt Count 330 (150-450) k/uL MPV 7.5 Neutrophils % 76 % Lymphocytes % 14 % Monocytes % 6 % Eosinophils % 2 % Basophils % 1 % Neutrophils # 7.3 (1.3-7.7) k/uL Lymphocytes # 1.4 (1.0-4.8) k/uL Monocytes # 0.6 (0-1.0) k/uL Eosinophils # 0.2 (0-0.7) k/uL Basophils # 0.1 (0-0.2) k/uL PT 11.3 (10.0-12.5) sec INR 1.0 (<1.2) APTT 29.7 (22.0-30.0) sec Sodium (137-145) mmol/L Potassium (3.5-5.1) mmol/L Chloride (98-107) mmol/L Carbon Dioxide (22-30) mmol/L Anion Gap mmol/L BUN (9-20) mg/dL Creatinine (0.66-1.25) mg/dL Est GFR (CKD-EPI)AfAm (>60 ml/min/1.73 sqM) Est GFR (CKD-EPI)NonAf (>60 ml/min/1.73 sqM) Glucose (74-99) mg/dL Calcium (8.4-10.2) mg/dL Total Bilirubin (0.2-1.3) mg/dL AST (17-59) U/L ALT (4-49) U/L Alkaline Phosphatase (38-126) U/L Troponin I <0.012 (0.000-0.034) ng/mL Total Protein (6.3-8.2) g/dL Albumin (3.5-5.0) g/dL Urine Color Urine Appearance (Clear) Urine pH (5.0-8.0) Ur Specific [place] (1.001-1.035) Urine Protein (Negative) Urine Glucose (UA) (Negative) Urine Ketones (Negative) Urine Blood (Negative) Urine Nitrite (Negative) Urine Bilirubin (Negative) Urine Urobilinogen (<2.0) mg/dL Ur Leukocyte Esterase (Negative) Urine RBC (0-5) /hpf Urine WBC (0-5) /hpf Hyaline Casts (0-2) /lpf Urine Mucus (None) /hpf Influenza Type A (PCR) (Not Detectd) Influenza Type B (PCR) (Not Detectd) RSV (PCR) (Not Detectd) SARS-CoV-2 (PCR) (Not Detectd) 04/19/24 04/19/24 04/19/24 Range/Units 11:07 11:07 11:07 WBC (3.8-10.6) k/uL RBC (4.30-5.90) m/uL Hgb (13.0-17.5) gm/dL Hct (39.0-53.0) % MCV (80.0-100.0) fL MCH (25.0-35.0) pg MCHC (31.0-37.0) g/dL RDW (11.5-15.5) % Plt Count (150-450) k/uL MPV Neutrophils % % Lymphocytes % % Monocytes % % Eosinophils % % Basophils % % Neutrophils # (1.3-7.7) k/uL Lymphocytes # (1.0-4.8) k/uL Monocytes # (0-1.0) k/uL Eosinophils # (0-0.7) k/uL Basophils # (0-0.2) k/uL PT (10.0-12.5) sec INR (<1.2) APTT (22.0-30.0) sec Sodium 138 (137-145) mmol/L Potassium 4.4 (3.5-5.1) mmol/L Chloride 108 H (98-107) mmol/L Carbon Dioxide 23 (22-30) mmol/L Anion Gap 7 mmol/L BUN 18 (9-20) mg/dL Creatinine 0.89 (0.66-1.25) mg/dL Est GFR (CKD-EPI)AfAm >90 (>60 ml/min/1.73 sqM) Est GFR (CKD-EPI)NonAf 83 (>60 ml/min/1.73 sqM) Glucose 95 (74-99) mg/dL Calcium 9.8 (8.4-10.2) mg/dL Total Bilirubin 0.5 (0.2-1.3) mg/dL AST 29 (17-59) U/L ALT 45 (4-49) U/L Alkaline Phosphatase 83 (38-126) U/L Troponin I (0.000-0.034) ng/mL Total Protein 6.6 (6.3-8.2) g/dL Albumin 3.8 (3.5-5.0) g/dL Urine Color Light Yellow Urine Appearance Clear (Clear) Urine pH 5.5 (5.0-8.0) Ur Specific [place] 1.019 (1.001-1.035) Urine Protein Negative (Negative) Urine Glucose (UA) Negative (Negative) Urine Ketones Negative (Negative) Urine Blood Trace H (Negative) Urine Nitrite Negative (Negative) Urine Bilirubin Negative (Negative) Urine Urobilinogen <2.0 (<2.0) mg/dL Ur Leukocyte Esterase Negative (Negative) Urine RBC 1 (0-5) /hpf Urine WBC 1 (0-5) /hpf Hyaline Casts 1 (0-2) /lpf Urine Mucus Occasional H (None) /hpf Influenza Type A (PCR) Not Detected (Not Detectd) Influenza Type B (PCR) Not Detected (Not Detectd) RSV (PCR) Not Detected (Not Detectd) SARS-CoV-2 (PCR) Not Detected (Not Detectd) Disposition Clinical Impression: Cervical stenosis of spinal canal, Muscle weakness of extremity, Lumbar canal stenosis Disposition: HOME SELF-CARE Condition: Good Instructions (If sedation given, give patient instructions): Cervical Spinal Stenosis (ED) Is patient prescribed a controlled substance at d/c from ED?: No Referrals: Nawaf Jones MD [Primary Care Provider] - 1-2 days Bin Montague DO [Doctor of Osteopathic Medicine] - 1-2 days Time of Disposition: 13:19
[2024-04-19 11:20] LABS: Basophils # (A) 0.1 k/uL (0-0.2); Basophils % (A) 1 %; Eosinophils # (A) 0.2 k/uL (0-0.7); Eosinophils % (A) 2 %; HCT 37.5 % (39.0-53.0); HGB 12.3 gm/dL (13.0-17.5); Lymphocytes # (A) 1.4 k/uL (1.0-4.8); Lymphocytes % (A) 14 %; MCH 27.9 pg (25.0-35.0); MCHC 32.7 g/dL (31.0-37.0); MCV 85.2 fL (80.0-100.0); Mean Platelet Volume 7.5; Monocytes # (A) 0.6 k/uL (0-1.0); Monocytes % (A) 6 %; Neutrophils # (A) 7.3 k/uL (1.3-7.7); Neutrophils % (A) 76 %; Platelet Count 330 k/uL (150-450); RDW 13.2 % (11.5-15.5); WBC 9.7 k/uL (3.8-10.6)
[2024-04-19 11:25] LABS: Appearance,Urine Clear (Clear); Bilirubin,Urine Negative (Negative); Blood,Urine Trace (Negative); Color,Urine Light Yellow; Glucose,Urine (UA) Negative (Negative); Hyaline Casts,Urine 1 /lpf (0-2); Ketones,Urine Negative (Negative); Leukocyte Esterase,Urine Negative (Negative); Mucus,Urine Occasional /hpf; Nitrite,Urine Negative (Negative); PH, Urine 5.5 (5.0-8.0); Protein,Urine Negative (Negative); RBC,Urine 1 /hpf (0-5); Specific Gravity,Urine 1.019 (1.001-1.035); Urobilinogen,Urine <2.0 mg/dL (<2.0); WBC,Urine 1 /hpf (0-5)
[2024-04-19 11:29] LABS: Partial Thromboplastin Time 29.7 sec (22.0-30.0); Prothrombin Time 11.3 sec (10.0-12.5)
[2024-04-19 11:41] LABS: ALT 45 U/L (4-49); AST 29 U/L (17-59); African American GFR (CKD) >90 (>60 ml/min/1.73 sqM); Albumin 3.8 g/dL (3.5-5.0); Alkaline Phosphatase 83 U/L (38-126); Anion Gap 7 mmol/L; Blood Urea Nitrogen 18 mg/dL (9-20); Calcium 9.8 mg/dL (8.4-10.2); Carbon Dioxide 23 mmol/L (22-30); Chloride 108 mmol/L (98-107); Glucose 95 mg/dL (74-99); Non-African American GFR(CKD) 83 (>60 ml/min/1.73 sqM); Potassium 4.4 mmol/L (3.5-5.1); Sodium 138 mmol/L (137-145); Total Bilirubin 0.5 mg/dL (0.2-1.3); Total Protein 6.6 g/dL (6.3-8.2)
--- NOTE | 2024-04-19 12:02 | XR ---
EXAMINATION TYPE: XR chest 2V DATE OF EXAM: 04/19/2024 11:24 AM COMPARISON: Chest radiographs from 01/08/2022 CLINICAL INDICATION: Male, 74 years old with history of Upper chest pain; TECHNIQUE: XR chest 2V Frontal and lateral views of the chest. FINDINGS: Lungs/Pleura: There is no evidence of pleural effusion, focal consolidation, or pneumothorax. Pulmonary vascularity: Unremarkable. Heart/mediastinum: Cardiomediastinal silhouette is unremarkable. Musculoskeletal: No acute osseous pathology. IMPRESSION: No acute cardiopulmonary disease/process. [facility] P[facility]wee Bryan, , 04/19/2024 12:00 PM
--- NOTE | 2024-04-19 12:39 | CT ---
EXAMINATION TYPE: CT cervical spine wo con CT DLP: 412 mGycm, Automated exposure control for dose reduction was used. DATE OF EXAM: 04/19/2024 12:21 PM COMPARISON: None. CLINICAL INDICATION:Male, 74 years old with history of Weakness/radiculopathy, positive Spurling; PHH , Weakness, radiculopathy, positive spurling. TECHNIQUE: Axial CT images from the skull base to the inferior aspect of T2 we obtained without intra venous contrast. Coronal and sagittal reformatted images were also reviewed. FINDINGS: Fracture: None. Osseous structures: Multilevel degenerative disc disease changes with endplate spurring and disc oste ophyte complex's. Vertebral alignment: Reversal of the normal cervical lordosis. Degenerative grade 1 anterolisthesis o f C3 on C4 and C7 on T1. Mild degenerative retrolisthesis of C5 on C6. Spinal canal/Neural Foramina: Mild central canal stenosis at C4-C5 secondary to broad-based disc bulg e. Moderate central canal stenosis at C5-C6 secondary to posterior disc osteophyte complex. Moderate central canal stenosis at C6-C7 secondary to posterior disc osteophyte complex. Fusion of the left C3 -C4 facet joint. Fusion of the right C2-C3 facet joint. Facet joint uncovertebral joint arthropathy s cattered throughout the cervical spine with varying degrees of neural foraminal stenosis. Moderate bi lateral neuroforaminal stenosis at C5-C6 and C6-C7. Moderate left neural foraminal stenosis at C4-C5 with mild on the right at this level. Mild right and moderate left neural foraminal stenosis at C3-C4 . Neck soft tissues: Prevertebral soft tissues are within normal limits. Other: The airway is patent. The lung apices are clear. IMPRESSION: 1. No evidence of cervical spine fracture. 2. Moderate multilevel degenerative disc disease and facet arthropathy. Most pronounced at C5-C6 and C6-C7 with moderate central canal stenosis. Consider further evaluation with MRI cervical spine as cl inically indicated. 3. Degenerative grade 1 anterolisthesis of C3 on C4 and C7 on T1. Mild degenerative retrolisthesis of C5 on C6. [facility], , 04/19/2024 12:36 PM
--- NOTE | 2024-04-19 12:49 | CT ---
EXAMINATION TYPE: CT lumbar spine wo con CT DLP: 767.2 mGycm, Automated exposure control for dose reduction was used. DATE OF EXAM: 04/19/2024 12:21 PM COMPARISON: CT abdomen and pelvis 09/30/2017. CLINICAL INDICATION:Male, 74 years old with history of Pain, radiculopathy; PHH, Pain, radiculopathy, weakness bilateral legs TECHNIQUE: Multiple axial images were obtained from the midportion of T11 through the sacroiliac jomar nts. Soft tissue and bone windows in coronal and sagittal planes were obtained and reviewed. Contrast used: none. Oral contrast used: none. FINDINGS: Alignment: There are 5 lumbar type vertebral bodies within normal alignment. Bone: No evidence of fracture is identified. Degenerative changes of bilateral SI joints with anteri or bridging. Multilevel anterior osteophytosis of the visualized thoracolumbar spine with prominent a nterior osteophyte at L4-L5. Discs: Multilevel Schmorl's nodes. Multilevel disc space narrowing with endplate sclerosis and vacuum disc disease. T12-L1: No spinal canal or neural foraminal stenosis is identified. L1-L2: Broad-based disc bulge with left paracentral calcified disc protrusion resulting in mild centr al canal stenosis. Bilateral facet arthropathy. Bilateral mild neural foraminal stenosis. L2-L3: Minimal broad-based disc bulge without significant effacement of the intrathecal sac. Bilatera l facet arthropathy. Mild bilateral neural foraminal stenosis. L3-L4: Broad-based disc bulge with ligament of flavum buckling and bilateral facet arthropathy contri bute to mild central canal stenosis. Mild bilateral neural foraminal stenosis. L4-L5: Broad-based disc bulge with mild effacement of the anterior thecal sac. Bilateral facet arthro joshua. Moderate right and mild left neural foraminal stenosis. L5-S1: Disc bulge without significant central canal stenosis. Bilateral facet arthropathy. Mild bilat eral neural foraminal stenosis. Other: Subsegmental atelectasis within the right lower lobe. Right renal cyst identified measuring up to 2.5 cm. Nonobstructive left renal calculus measuring up to 4 mm. Hyperdensity within the bilatera l renal papilla which can be seen with dehydration. Distal colonic diverticulosis without visualized acute diverticulitis. IMPRESSION: 1. No evidence for acute spinal fracture. 2. Mild to moderate multilevel degenerative disc disease and facet arthropathy as described above. Mo st pronounced at L1-L2 and L3-L4 with mild central canal stenosis. 3. Nonobstructive left renal calculus. [facility], , 04/19/2024 12:47 PM
[2024-04-19 13:56] VITALS: BP 129/81; PULSE 79; TEMP 98.1
== END 2024-04-19 13:56 | disposition home or self-care (01) ==
LOC: EC 10:09
DX: M48.02 Spinal stenosis, cervical region (principal); M48.061 Spinal stenosis, lumbar region without neurogenic claudication; M51.369 Other intervertebral disc degeneration, lumbar region without mention of lumbar back pain or lower extremity pain; M43.12 Spondylolisthesis, cervical region; Z91.040 Latex allergy status; Z91.09 Other allergy status, other than to drugs and biological substances
CPT/HCPCS: 36415; 71046; 72125; 72131; 80053; 81001; 84484; 85025; 85610; 85730; 87636; 93005; 99284

== ENCOUNTER 2024-05-13 11:32 | Emergency (ER) | payer MEDICARE ==
[2024-05-13 11:41] VITALS: TEMP 97.6
[2024-05-13 13:04] LABS: Basophils % (A) 1 %; Eosinophils # (A) 0.2 k/uL (0-0.7); Eosinophils % (A) 2 %; HCT 37.1 % (39.0-53.0); HGB 11.7 gm/dL (13.0-17.5); Hypochromasia Slight; Lymphocytes # (A) 1.3 k/uL (1.0-4.8); Lymphocytes % (A) 17 %; MCH 27.2 pg (25.0-35.0); MCHC 31.5 g/dL (31.0-37.0); MCV 86.2 fL (80.0-100.0); Mean Platelet Volume 7.7; Monocytes # (A) 0.6 k/uL (0-1.0); Monocytes % (A) 9 %; Neutrophils # (A) 5.3 k/uL (1.3-7.7); Neutrophils % (A) 71 %; Platelet Count 309 k/uL (150-450); RDW 13.5 % (11.5-15.5); WBC 7.5 k/uL (3.8-10.6)
[2024-05-13 13:13] LABS: ALT 30 U/L (4-49); AST 20 U/L (17-59); African American GFR (CKD) >90 (>60 ml/min/1.73 sqM); Albumin 3.7 g/dL (3.5-5.0); Alkaline Phosphatase 71 U/L (38-126); Anion Gap 10 mmol/L; Blood Urea Nitrogen 21 mg/dL (9-20); Calcium 9.8 mg/dL (8.4-10.2); Carbon Dioxide 23 mmol/L (22-30); Chloride 105 mmol/L (98-107); Glucose 118 mg/dL (74-99); Non-African American GFR(CKD) 85 (>60 ml/min/1.73 sqM); Potassium 4.3 mmol/L (3.5-5.1); Sodium 138 mmol/L (137-145); Total Bilirubin 0.4 mg/dL (0.2-1.3); Total Protein 6.3 g/dL (6.3-8.2)
[2024-05-13 13:20] LABS: INR 1.1 (<1.2); Partial Thromboplastin Time 27.8 sec (22.0-30.0); Prothrombin Time 12.1 sec (10.0-12.5)
[2024-05-13 13:22] LABS: NT-Pro-B-Type Natriuretic Pept 80 pg/mL
--- NOTE | 2024-05-13 13:41 | US ---
EXAMINATION TYPE: US venous doppler duplex LE BI DATE OF EXAM: 05/13/2024 1:22 PM COMPARISON: NONE CLINICAL INDICATION: Male, 74 years old with history of leg swelling; bilat ankle swelling. Not on bl ood thinners, Pain TECHNIQUE: The lower extremity deep venous system is examined utilizing real time linear array sonog marilyn with graded compression, color doppler sonography, and spectral doppler. SIDE PERFORMED: Bilateral FINDINGS: VESSELS IMAGED: Common Femoral Vein Deep Femoral Vein Greater Saphenous Vein * Femoral Vein Popliteal Vein Small Saphenous Vein * Proximal Calf Veins (* superficial vessels) Right Leg: Negative for DVT. Wilcox's cyst seen measuring 6.1 x 4.9 x 1.6cm., Color Doppler imaging s hows patency of the vessels. Spectral waveforms are within normal limits. Left Leg: Negative for DVT. Rouleaux flow seen in popliteal vein., Color Doppler imaging shows paten cy of the vessels. Spectral waveforms are within normal limits. IMPRESSION: 1. No ultrasound evidence for deep venous thrombosis. 2. There is a 6.1 cm right popliteal fossa cyst. [facility], , 05/13/2024 1:38 PM
--- NOTE | 2024-05-13 15:00 | ED ---
Extremity Problem HPI - General Chief complaint: Extremity Problem,Nontraumatic Stated complaint: Michael ankle swelling Time Seen by Provider: 05/13/24 12:00 Source: patient Mode of arrival: wheelchair Limitations: no limitations - History of Present Illness Initial comments: 74-year-old male presents emergency department reporting bilateral ankle swelling. States over the past day he has noted significant swelling to his lower extremities. This is completely new for him. He denies history of renal disease, heart failure or lymphedema. He denies any pain in his feet or ankles. He does admit to pain and weakness in his hips and shoulders. This has been a progressive thing since December. Patient has followed up with his primary care at an orthopedic surgeon in regards to his symptoms. He states he was referred to an orthospine doctor as they are concerned that his weakness is due to his neck. Patient is concerned that he has a muscle disease as he is also having weakness in his legs. The weakness and pain is equal bilaterally. It has never been associated with swelling until the past 2 days. He denies history of DVT or PE. No shortness of breath or chest pain. Patient does not take a diuretic. He denies any overlying infection. No fevers. No other alleviating, precipitating or modifying factors - Related Data Home Medications Medication Instructions Recorded Confirmed Atorvastatin [Lipitor] 20 mg PO HS 09/30/17 01/08/22 Levothyroxine Sodium [Synthroid] 88 mcg PO AC-BRKFST 09/30/17 01/08/22 Potassium Gluconate [Potassium 99 - 198 mg PO DAILY PRN 01/08/22 01/08/22 Gluconate ER] Vitamin C(Unknown) 1 tab PO DAILY 01/08/22 01/08/22 Vitamin D3(Unknown) 1 tab PO DAILY 01/08/22 01/08/22 Vitamin E(Unknown) 1 cap PO DAILY 01/08/22 01/08/22 Previous Rx's Medication Instructions Recorded Aspirin 81 mg PO DAILY tab 01/09/22 Allergies Allergy/AdvReac Type Severity Reaction Status Date / Time latex Allergy Rash/Hives Verified 05/13/24 11:38 adhesive tape AdvReac "peels Verified 05/13/24 11:38 skin" Review of Systems ROS Statement: Those systems with pertinent positive or pertinent negative responses have been documented in the HPI. ROS Other: All systems not noted in ROS Statement are negative. Past Medical History Past Medical History: Hyperlipidemia, Prostate Disorder, Thyroid Disorder Additional Past Medical History / Comment(s): kidney stones, Hx of prostate cancer s/p prostectomy History of Any Multi-Drug Resistant Organisms: None Reported Past Surgical History: Hernia Repair, Prostate Surgery Additional Past Surgical History / Comment(s): left hernia, umbilical hernia Past Anesthesia/Blood Transfusion Reactions: No Reported Reaction Past Psychological History: No Psychological Hx Reported Smoking Status: Never smoker Past Alcohol Use History: Rare Past Drug Use History: None Reported - Past Family History Mother Family Medical History: No Reported History Additional Family Medical History / Comment(s): valvular heart disease Father Family Medical History: Cancer Additional Family Medical History / Comment(s): prostate Brother(s) Family Medical History: Cancer Additional Family Medical History / Comment(s): prostate General Exam Limitations: no limitations General appearance: alert, in no apparent distress Head exam: Present: atraumatic, normocephalic, normal inspection Eye exam: Present: normal appearance, PERRL, EOMI. Absent: scleral icterus, conjunctival injection, periorbital swelling ENT exam: Present: normal exam, mucous membranes moist Neck exam: Present: normal inspection. Absent: tenderness, meningismus, lymphadenopathy Respiratory exam: Present: normal lung sounds bilaterally. Absent: respiratory distress, wheezes, rales, rhonchi, stridor Cardiovascular Exam: Present: regular rate, normal rhythm, normal heart sounds. Absent: systolic murmur, diastolic murmur, rubs, gallop, clicks GI/Abdominal exam: Present: soft, normal bowel sounds. Absent: distended, tenderness, guarding, rebound, rigid Extremities exam: Present: normal inspection, full ROM, normal capillary refill, pedal edema (1+ edema). Absent: tenderness, joint swelling, calf tenderness Back exam: Present: normal inspection Neurological exam: Present: alert, oriented X3, CN II-XII intact Psychiatric exam: Present: normal affect, normal mood Skin exam: Present: warm, dry, intact, normal color. Absent: rash Course Vital Signs 05/13/24 05/13/24 11:38 15:20 Temperature 97.6 F Pulse Rate 66 62 Respiratory 18 20 Rate Blood Pressure 121/77 124/81 O2 Sat by Pulse 98 97 Oximetry Medical Decision Making - Medical Decision Making Was pt. sent in by a medical professional or institution ([facility] Leslie, [employer]INT [employer], urgent care, hospital, or senior living...) When possible be specific @ -No Did you speak to anyone other than the patient for history (EMS, parent, family, police, friend...)? What history was obtained from this source @ -No Did you review nursing and triage notes (agree or disagree)? Why? @ -I reviewed and agree with nursing and triage notes Were old charts reviewed (outside hosp., previous admission, EMS record, old EKG, old radiological studies, urgent care reports/EKG's, senior living records)? Report findings @ -No old charts were reviewed Differential Diagnosis (chest pain, altered mental status, abdominal pain women, abdominal pain men, vaginal bleeding, weakness, fever, dyspnea, syncope, headache, dizziness, GI bleed, back pain, seizure, CVA, palpatations, mental health, musculoskeletal)? @ -Acute kidney injury, congestive heart failure, DVT EKG interpreted by me (3pts min.). @ -Yes and demonstrates sinus bradycardia with a rate of 58. MD interval 198. QRS 88. QTc of 388. No acute ST segment elevations or depressions. No signs of high degree heart block X-rays interpreted by me (1pt min.). @ -None done CT interpreted by me (1pt min.). @ -None done U/S interpreted by me (1pt. min.). @ -Yes and demonstrates no DVT What testing was considered but not performed or refused? (CT, X-rays, U/S, labs)? Why? @ -None What meds were considered but not given or refused? Why? @ -None Did you discuss the management of the patient with other professionals (professionals i.e. RUBEN Leslie, PRINT PRODUCER, lab, RT, psych nurse, social services director, master lay out specialist, teacher, cash management officer, director of casework)? Give summary @ -No Was smoking cessation discussed for >3mins.? @ -No Was critical care preformed (if so, how long)? @ -No Were there social determinants of health that impacted care today? How? (Homelessness, low income, unemployed, alcoholism, drug addiction, transportation, low edu. Level, literacy, decrease access to med. care, senior care, rehab)? @ -No Was there de-escalation of care discussed even if they declined (Discuss DNR or withdrawal of care, Hospice)? DNR status @ -No What co-morbidities impacted this encounter? (DM, HTN, Smoking, COPD, CAD, Cancer, CVA, ARF, Chemo, Hep., AIDS, mental health diagnosis, sleep apnea, morbid obesity)? @ -None Was patient admitted / discharged? Hospital course, mention meds given and route, prescriptions, significant lab abnormalities, going to OR and other pertinent info. @ -Upon arrival patient seen and evaluated in room 16. Thorough history and physical exam was performed. IV access was established. Laboratory studies are conducted. Ultrasounds were performed. I did discuss the results with the patient. Patient's symptoms do sound concerning for possible dermatomyositis as he is reporting to weakness and pain in his shoulders and hips. I do feel that the patient requires a further evaluation by a credit support specialist. At this time the patient be discharged home. Instructed to follow-up with his primary care. Recommend referral to rheumatology. I also recommended that he continue to keep his appointment with orthospine. Return for any new or worsening symptoms. Patient agreeable plan was discharged in stable condition Undiagnosed new problem with uncertain prognosis? @ -Yes Drug Therapy requiring intensive monitoring for toxicity (Heparin, Nitro, Insulin, Cardizem)? @ -No Were any procedures done? @ -No Diagnosis/symptom? @ -Acute bilateral leg swelling Acute, or Chronic, or Acute on Chronic? @ -Acute Uncomplicated (without systemic symptoms) or Complicated (systemic symptoms)? @ -Complicated Side effects of treatment? @ -No Exacerbation, Progression, or Severe Exacerbation? @ -No Poses a threat to life or bodily function? How? (Chest pain, USA, IA, pneumonia, PE, COPD, DKA, ARF, appy, cholecystitis, CVA, Diverticulitis, Homicidal, Suicidal, threat to staff... and all critical care pts) @ -No - Lab Data Result diagrams: 05/13/24 12:49 05/13/24 12:49 Lab Results 05/13/24 05/13/24 05/13/24 Range/Units 12:49 12:49 12:49 WBC 7.5 (3.8-10.6) k/uL RBC 4.30 (4.30-5.90) m/uL Hgb 11.7 L (13.0-17.5) gm/dL Hct 37.1 L (39.0-53.0) % MCV 86.2 (80.0-100.0) fL MCH 27.2 (25.0-35.0) pg MCHC 31.5 (31.0-37.0) g/dL RDW 13.5 (11.5-15.5) % Plt Count 309 (150-450) k/uL MPV 7.7 Neutrophils % 71 % Lymphocytes % 17 % Monocytes % 9 % Eosinophils % 2 % Basophils % 1 % Neutrophils # 5.3 (1.3-7.7) k/uL Lymphocytes # 1.3 (1.0-4.8) k/uL Monocytes # 0.6 (0-1.0) k/uL Eosinophils # 0.2 (0-0.7) k/uL Basophils # 0.0 (0-0.2) k/uL Hypochromasia Slight PT 12.1 (10.0-12.5) sec INR 1.1 (<1.2) APTT 27.8 (22.0-30.0) sec Sodium 138 (137-145) mmol/L Potassium 4.3 (3.5-5.1) mmol/L Chloride 105 (98-107) mmol/L Carbon Dioxide 23 (22-30) mmol/L Anion Gap 10 mmol/L BUN 21 H (9-20) mg/dL Creatinine 0.84 (0.66-1.25) mg/dL Est GFR (CKD-EPI)AfAm >90 (>60 ml/min/1.73 sqM) Est GFR (CKD-EPI)NonAf 85 (>60 ml/min/1.73 sqM) Glucose 118 H (74-99) mg/dL Plasma Lactic Acid Blaise (0.7-2.0) mmol/L Calcium 9.8 (8.4-10.2) mg/dL Total Bilirubin 0.4 (0.2-1.3) mg/dL AST 20 (17-59) U/L ALT 30 (4-49) U/L Alkaline Phosphatase 71 (38-126) U/L Troponin I (0.000-0.034) ng/mL NT-Pro-B Natriuret Pep 80 pg/mL Total Protein 6.3 (6.3-8.2) g/dL Albumin 3.7 (3.5-5.0) g/dL 05/13/24 05/13/24 Range/Units 12:49 12:49 WBC (3.8-10.6) k/uL RBC (4.30-5.90) m/uL Hgb (13.0-17.5) gm/dL Hct (39.0-53.0) % MCV (80.0-100.0) fL MCH (25.0-35.0) pg MCHC (31.0-37.0) g/dL RDW (11.5-15.5) % Plt Count (150-450) k/uL MPV Neutrophils % % Lymphocytes % % Monocytes % % Eosinophils % % Basophils % % Neutrophils # (1.3-7.7) k/uL Lymphocytes # (1.0-4.8) k/uL Monocytes # (0-1.0) k/uL Eosinophils # (0-0.7) k/uL Basophils # (0-0.2) k/uL Hypochromasia PT (10.0-12.5) sec INR (<1.2) APTT (22.0-30.0) sec Sodium (137-145) mmol/L Potassium (3.5-5.1) mmol/L Chloride (98-107) mmol/L Carbon Dioxide (22-30) mmol/L Anion Gap mmol/L BUN (9-20) mg/dL Creatinine (0.66-1.25) mg/dL Est GFR (CKD-EPI)AfAm (>60 ml/min/1.73 sqM) Est GFR (CKD-EPI)NonAf (>60 ml/min/1.73 sqM) Glucose (74-99) mg/dL Plasma Lactic Acid Blaise 1.1 (0.7-2.0) mmol/L Calcium (8.4-10.2) mg/dL Total Bilirubin (0.2-1.3) mg/dL AST (17-59) U/L ALT (4-49) U/L Alkaline Phosphatase (38-126) U/L Troponin I <0.012 (0.000-0.034) ng/mL NT-Pro-B Natriuret Pep pg/mL Total Protein (6.3-8.2) g/dL Albumin (3.5-5.0) g/dL Disposition Clinical Impression: Shoulder weakness, Leg weakness, bilateral, Lymphedema Disposition: HOME SELF-CARE Condition: Stable Instructions (If sedation given, give patient instructions): Leg Edema (ED) Additional Instructions: Please follow-up with your primary care doctor in 2-4 days. I recommend that he refers you to the credit support specialist for further evaluation of your symptoms - my concern is for dermatomyositis. Muscle therapy with also be beneficial so I recommend a referral for that. Return for any new or worsening symptoms Is patient prescribed a controlled substance at d/c from ED?: No Referrals: Nawaf Jones MD [Primary Care Provider] - 1-2 days Svitlana Fernandez MD [STAFF PHYSICIAN] - 1-2 days Time of Disposition: 14:59
[2024-05-13 15:21] VITALS: BP 124/81; PULSE 62; RESP 20
== END 2024-05-13 15:23 | disposition home or self-care (01) ==
LOC: EC 11:32
DX: I89.0 Lymphedema, not elsewhere classified (principal); M62.81 Muscle weakness (generalized); Z91.048 Other nonmedicinal substance allergy status; Z91.040 Latex allergy status
CPT/HCPCS: 36415; 80053; 83605; 83880; 84484; 85025; 85610; 85730; 93005; 93970; 99284

== ENCOUNTER → 2024-06-07 | Outpatient (CLI) | payer MEDICARE ==
--- NOTE | 2024-06-07 19:14 | MR ---
EXAMINATION TYPE: MR cspine/lspine wo con DATE OF EXAM: 06/07/2024 5:38 PM COMPARISON: Plain film and CT. CLINICAL INDICATION: Male, 74 years old with history of M43.12 M54.2 [id number]; PHH, Neck pain into both arms, Low back pain into both hips, Fall 3months ago, Hx Prostate cancer TECHNIQUE: Multi planar, multi sequence imaging was performed utilizing: T1-weighted, T2-weighted, a nd turbo inversion recovery imaging of the cervical and lumbar spine. IV Contrast: mL (None, if empty) FINDINGS: CERVICAL: Alignment: The cervical vertebral bodies have preserved heights. Grade 1 anterolisthesis of C7 on T1. Bones: Bone signal is within normal limits. No abnormal bone marrow edema on inversion recovery seque nces. Cord: Increased cord signal at the level of C5-C6. The remainder of the spinal cord is unremarkable w ith regards to their signal intensity and morphology. Discs: Multilevel disc desiccation is present. C2-C3: No significant disc pathology. The spinal canal is patent. No neural foraminal stenosis. C3-C4: No significant disc pathology. The spinal canal is patent. Bilateral facet and uncovertebral joint arthropathy are present with mild bilateral neural foraminal stenosis. C4-C5: No significant disc pathology. The spinal canal is patent. Bilateral facet and uncovertebral joint arthropathy are present with moderate bilateral neural foraminal stenosis. C5-C6: A disc osteophyte complex is present with severe spinal canal stenosis. Is increased cord sign al at this level. Bilateral facet and uncovertebral joint arthropathy are present with moderate to se mary bilateral neural foraminal stenosis. C6-C7: A disc osteophyte complex is present which minimally narrows the ventral subarachnoid space. Bilateral facet and uncovertebral joint arthropathy are present with mild bilateral neural foraminal stenosis. C7-T1: No significant disc pathology. The spinal canal is patent. No neural foraminal stenosis. Other: None. LUMBAR: Alignment: The lumbar vertebral bodies have preserved heights and alignment. Cord: The conus medullaris and the distal spinal cord appear unremarkable with regards to their signa l intensity and morphology. Bones/Discs: Mild degeneration changes throughout diffuse decrease the spine with osteophyte formatio n and facet joint arthropathy. Multilevel disc desiccation is present with disc space narrowing osteo phytes and facet joint arthropathy. patchy areas of high or focal fatty bone marrow. Bone marrow signal with T12-L1: No evidence of significant spinal canal stenosis or neural foraminal stenosis. L1-L2: Left central disc protrusion without significant spinal canal or neural foraminal stenosis L2-L3: Disc bulge and facet joint arthropathy result in mild spinal canal and moderate bilateral neur al foraminal stenosis. L3-L4: Disc bulge and facet joint arthropathy result in mild spinal canal and moderate bilateral neur al foraminal stenosis. L4-L5: Disc bulge and facet joint arthropathy result in mild spinal canal and moderate bilateral neur al foraminal stenosis. L5-S1: Disc bulge and facet joint arthropathy result in mild spinal canal and moderate bilateral dario ral foraminal stenosis. No significant spinal canal or neural foraminal stenosis in the remainder of the visualized levels. Other findings: Scattered colonic diverticulosis. IMPRESSION: 1. Degeneration changes of the cervical spine with severe C5-C6 spinal canal stenosis with some cord signal change compatible with myelopathy. 2. Multilevel degeneration changes throughout the cervical spine with multilevel neural foraminal st enosis worse at C5-C6 and moderate severe bilateral. 3. Grade 1 anterolisthesis of C7 on T1. 4. L1-L2 Left central disc protrusion without significant spinal canal or neural foraminal stenosis. 5. Moderate multilevel degeneration changes throughout the spine with moderate multilevel bilateral neural foraminal stenosis. 6. Diffuse red marrow conversion can be seen in the setting of tobacco abuse, anemia, or myeloprolif erative disorder. Findings communicated to Elier Serrano DO on 06/07/2024 7:[address] Oni Malik. [facility], , 06/07/2024 7:12 PM
== END | disposition home or self-care (01) ==
LOC: RADMRIMAIN 16:21
PROVIDERS: ATTEND Orthopaedic Surgery
DX: M48.02 Spinal stenosis, cervical region (principal); M51.16 Intervertebral disc disorders with radiculopathy, lumbar region; M47.12 Other spondylosis with myelopathy, cervical region; M43.13 Spondylolisthesis, cervicothoracic region; W19.XXXA Unspecified fall, initial encounter; Z85.46 Personal history of malignant neoplasm of prostate
CPT/HCPCS: 72141; 72148